=== PATIENT | male | born 1945 | race Caucasian/White ===

== ENCOUNTER 2019-04-28 14:41 | Emergency (ER) | payer OTHER ==
[2019-04-28] MEDS ORDERED: NA CHLORIDE 0.9% 2,000 ML ONE (15:45)
[2019-04-28 15:49] LABS: Absolute Lymphocytes (CBC) 0.7 K/uL (0.7-4.9); Basophils % 0.1 % (0-1.3); Hematocrit 23.6 % (39.6-49.0); Lymphocytes % 18.8 % (15.3-44.8); MPV 8.3 fL (7.6-11.3); RBC Red Blood Cell Count 2.61 M/uL (4.33-5.43)
[2019-04-28 15:56] LABS: Protime INR 1.25
[2019-04-28 16:05] LABS: Potassium 4.6 mmol/L (3.5-5.1)
[2019-04-28 16:17] LABS: Anisocytosis 1+; Blood Morphology Comment NOTED (NOT SEEN); Platelet Estimate DECR; Poikilocytosis 1+; Polychromasia SLIGHT; Teardrop Cell 1+
[2019-04-28 16:28] LABS: Albumin 2.7 g/dL (3.4-5.0); Bilirubin Direct 0.1 mg/dL (0-0.2); Bilirubin Total 0.4 mg/dL (0.2-1.0); Magnesium 2.1 mg/dL (1.8-2.4); Protein, Total 5.9 g/dL (6.4-8.2)
[2019-04-28] MEDS ORDERED: HYDROCODONE/APAP 10/325 TAB ONE (16:34)
--- NOTE | 2019-04-28 17:17 | RAD REPORT ---
EXAM DESCRIPTION: RAD - Chest Single View - 04/28/2019 4:45 pm CLINICAL HISTORY: DYSPNEA, history of prostate cancer COMPARISON: Bone Imaging Whole Body dated 09/06/2018 TECHNIQUE: AP portable chest image was obtained 04/28/2019 4:45 pm . FINDINGS: Lung volumes are low. No peripheral consolidation or focal infiltrate. No pulmonary parenc hymal mass lesions seen. Heart and vasculature are normal. No measurable pleural effusion and no pneu mothorax. Sclerotic or blastic changes are seen throughout much of the skeleton. Prior bone scan show ed extensive bony metastatic disease. No acute aortic findings suspected. IMPRESSION: No acute cardiopulmonary process. Bony metastatic disease is evident. No pathologic fracture changes.
--- NOTE | 2019-04-28 19:52 | EDPHYS ---
Physician Documentation [facility] Name: Alberto Cristina Jr Age: 73 yrs Sex: Male : 1945 Arrival Date: 04/28/2019 Time: 14:45 Bed 27 Private MD: ED Physician Jim Mejia HPI: 04/28 17:22 This 73 yrs old Male presents to ER via EMS with complaints of weakness. jr8 17:22 Patient with history of gastric and prostate cancer. Too weak to receive chemotherapy jr8 at this time. Has been doing stem cell transplants for now. Stated that he has not been hydrating as well lately. Was unable to even get up out of bed today and family was unable to help him up as well secondary to weakness. Ambulance called at that time . Severity of symptoms: At their worst the symptoms were moderate in the emergency department the symptoms are unchanged. It is unknown whether or not the patient has had similar symptoms in the past. The patient has not recently seen a physician. Historical: - Allergies: 14:52 No Known Allergies; wh - PMHx: 14:52 Diabetes - NIDDM; Hypertension; Prostate Cancer; wh - Immunization history:: Adult Immunizations not up to date. - Coronavirus screen:: The patient has NOT traveled to [place], [place], or [place] in the past 14 days. - Social history:: Smoking status: Patient/guardian denies using. - Ebola Screening: : Patient negative for fever greater than or equal to 101.5 degrees Fahrenheit, and additional compatible Ebola Virus Disease symptoms Patient denies exposure to infectious person. ROS: 17:22 Eyes: Negative for injury, pain, redness, and discharge, ENT: Negative for injury, jr8 pain, and discharge, Neck: Negative for injury, pain, and swelling, Cardiovascular: Negative for chest pain, palpitations, and edema, Respiratory: Negative for shortness of breath, cough, wheezing, and pleuritic chest pain, Abdomen/GI: Negative for abdominal pain, nausea, vomiting, diarrhea, and constipation, Back: Negative for injury and pain, MS/Extremity: Negative for injury and deformity, Skin: Negative for injury, rash, and discoloration. 17:22 Neuro: Positive for weakness. Exam: 17:22 Eyes: Pupils equal round and reactive to light, extra-ocular motions intact. Lids and jr8 lashes normal. Conjunctiva and sclera are non-icteric and not injected. Pale in appearance. Cornea within normal limits. Periorbital areas with no swelling, redness, or edema. ENT: Nares patent. No nasal discharge, no septal abnormalities noted. Tympanic membranes are normal and external auditory canals are clear. Oropharynx with no redness, swelling, or masses, exudates, or evidence of obstruction, uvula midline. Mucous membranes dry Neck: Trachea midline, no thyromegaly or masses palpated, and no cervical lymphadenopathy. Supple, full range of motion without nuchal rigidity, or vertebral point tenderness. No Meningismus. Cardiovascular: Regular rate and rhythm with a normal S1 and S2. No gallops, murmurs, or rubs. Normal PMI, no JVD. No pulse deficits. Respiratory: Lungs have equal breath sounds bilaterally, clear to auscultation and percussion. No rales, rhonchi or wheezes noted. No increased work of breathing, no retractions or nasal flaring. Abdomen/GI: Soft, non-tender, with normal bowel sounds. No distension or tympany. No guarding or rebound. No evidence of tenderness throughout. Back: No spinal tenderness. No costovertebral tenderness. Full range of motion. MS/ Extremity: Pulses equal, no cyanosis. Neurovascular intact. Full, normal range of motion. Neuro: Awake and alert, GCS 15, oriented to person, place, time, and situation. Cranial nerves II-XII grossly intact. Motor strength 5/5 in all extremities. Sensory grossly intact. Cerebellar exam normal. Normal gait. 17:22 Skin: Appearance: Color: pale. 17:27 Abdomen/GI: Rectal exam: is unremarkable, Prostate: enlarged, nodular, rectal tone jr8 normal, Stool: brown, guaiac negative, hemorrhoid(s), external, without bleeding, without inflammation, without thrombosis, without pain, mass, is not appreciated, swelling, is not appreciated, tenderness, is not appreciated, the exam is chaperoned by the nurse. Vital Signs: 14:52 BP 125 / 64; Pulse 75; Resp 18; Temp 98.5; Pulse Ox 100% ; Weight 73.48 kg; Height 6 wh ft. 1 in. (185.42 cm); Pain 4/10; 16:00 BP 128 / 51; Pulse 74; Resp 18; Pulse Ox 100% on R/A; wh 17:30 BP 130 / 51; Pulse 65; Resp 18; Pulse Ox 99% on R/A; wh 14:52 Body Mass Index 21.37 (73.48 kg, 185.42 cm) MDM: 14:48 Patient medically screened. jr8 17:22 Data reviewed: vital signs, nurses notes, lab test result(s), EKG, radiologic studies, jr8 plain films. Data interpreted: Pulse oximetry: on room air is 100 %. Interpretation: normal. Counseling: I had a detailed discussion with the patient and/or guardian regarding: the historical points, exam findings, and any diagnostic results supporting the discharge/admit diagnosis, lab results, radiology results, the need for further work-up and treatment in the hospital. 17:44 Response to treatment: the patient's symptoms have markedly improved after treatment, jr8 patient is well hydrated. ED course: Patient feeling much better. No gross or occult blood noted on guiac. No reason to transfuse at this time. Fluids has made patient feel much better. Able to get up and stand on his own. No dizziness or gait abnormality. Discussed fluid continuation at home along with high calorie boost shakes. To f/u with Oncologist. Family and patient good with plan. Knows to come back if something were to change or worsen . 04/28 15:09 Order name: Basic Metabolic Panel [facility] 04/28 15:09 Order name: CBC with Diff 04/28 15:09 Order name: LFT's 04/28 15:09 Order name: Magnesium 04/28 15:09 Order name: NT PRO-BNP 04/28 15:09 Order name: PT-INR 04/28 15:09 Order name: Troponin (emerg Dept Use Only) [facility] 04/28 15:58 Order name: CBC with Automated Diff; Complete Time: 16:56 EDMS 04/28 15:58 Order name: Protime (+INR); Complete Time: 15:59 EDMS 04/28 16:06 Order name: Basic Metabolic Panel; Complete Time: 16:25 EDMS 04/28 16:29 Order name: Manual Differential; Complete Time: 16:56 EDMS 04/28 16:29 Order name: NT PRO-BNP; Complete Time: 16:56 EDMS 04/28 17:22 Order name: Liver (Hepatic) Function; Complete Time: 17: [facility] 04/28 17:24 Order name: Magnesium; Complete Time: 17: [facility] 04/28 15:09 Order name: XRAY Chest (1 view) [facility] 04/28 15:09 Order name: EKG; Complete Time: 16:10 [facility] 04/28 15:09 Order name: Cardiac monitoring; Complete Time: 15:18 [facility] 04/28 15:09 Order name: EKG - Nurse/Tech; Complete Time: 15: [facility] 04/28 15:09 Order name: IV Saline Lock; Complete Time: 15: [facility] 04/28 15:09 Order name: Labs collected and sent; Complete Time: 15: [facility] 04/28 15:09 Order name: O2 Per Protocol; Complete Time: 15: [facility] 04/28 15:09 Order name: O2 Sat Monitoring; Complete Time: 15: [facility] 04/28 15:26 Order name: Urine Dipstick-Ancillary (obtain specimen); Complete Time: 18: [facility] 04/28 18:02 Order name: Urine Dipstick--Ancillary (enter results) bd Administered Medications: 15:45 Drug: NS 0.9% 1000 ml Route: IV; Rate: 1000 ml; Site: right antecubital; 18:09 Follow up: Response: No adverse reaction; IV Status: Completed infusion 15:45 Drug: NS 0.9% 1000 ml Route: IV; Rate: 1000 ml; Site: right antecubital; 18:09 Follow up: Response: No adverse reaction; IV Status: Completed infusion 16:32 Drug: [place] 10 mg-325 mg 1 tabs Route: PO; 18:09 Follow up: Response: No adverse reaction; Pain is decreased; RASS: Alert and Calm (0) Disposition: 04/29 07:40 Co-signature as Attending Physician, Jim Mejia MD I agree with the assessment and morteza plan of care. Disposition: 04/28/19 17:46 Discharged to Home. Impression: Muscle weakness (generalized), Neoplastic (malignant) related fatigue, Dehydration. - Condition is Stable. - Discharge Instructions: Dehydration, Adult, Weakness, Rehydration, Adult. - Medication Reconciliation Form, Thank You Letter, Antibiotic Education, Prescription Opioid Use form. - Follow up: Private Physician; When: 5 - 6 days; Reason: Recheck today's complaints, Continuance of care, Re-evaluation by your physician. - Problem is new. - Symptoms have improved. Signatures: Dispatcher [employer] EDJim Chi MD MD cha Roszak, Josh, PA PA jr8 Kale Manzanojose alejandro espinoza Corrections: (The following items were deleted from the chart) 04/28 18:13 17:46 04/28/2019 17:46 Discharged to Home. Impression: Muscle weakness (generalized); wh Neoplastic (malignant) related fatigue; Dehydration. Condition is Stable. Forms are Medication Reconciliation Form, Thank You Letter, Antibiotic Education, Prescription Opioid Use. Follow up: Private Physician; When: 5 - 6 days; Reason: Recheck today's complaints, Continuance of care, Re-evaluation by your physician. Problem is new. Symptoms have improved. jr8
--- NOTE | 2019-04-28 19:52 | ER ---
Nurse's Notes [facility] Name: Alberto Cristina Jr Age: 73 yrs Sex: Male : 1945 Arrival Date: 04/28/2019 Time: 14:45 Bed 27 Private MD: Diagnosis: Muscle weakness (generalized);Neoplastic (malignant) related fatigue;Dehydration Presentation: 04/28 14:46 Presenting complaint: EMS states: Pt with HX of Prostate Cancer, family states Pt with wh AMS and dehydration because no appetite. Transition of care: patient was not received from another setting of care. Onset of symptoms was April 28, 2019. Risk Assessment: Do you want to hurt yourself or someone else? Patient reports no desire to harm self or others. Initial Sepsis Screen: Does the patient meet any 2 criteria? No. Patient's initial sepsis screen is negative. Does the patient have a suspected source of infection? No. Patient's initial sepsis screen is negative. Care prior to arrival: Glucose check: 118. 14:46 Method Of Arrival: EMS: [facility] 14:46 Acuity: MIRTHA 3 Historical: - Allergies: 14:52 No Known Allergies; wh - PMHx: 14:52 Diabetes - NIDDM; Hypertension; Prostate Cancer; wh - Immunization history:: Adult Immunizations not up to date. - Coronavirus screen:: The patient has NOT traveled to [place], [place], or [place] in the past 14 days. - Social history:: Smoking status: Patient/guardian denies using. - Ebola Screening: : Patient negative for fever greater than or equal to 101.5 degrees Fahrenheit, and additional compatible Ebola Virus Disease symptoms Patient denies exposure to infectious person. Screenin:56 Abuse screen: Denies threats or abuse. Denies injuries from another. Nutritional screening: No deficits noted. Tuberculosis screening: No symptoms or risk factors identified. Fall Risk None identified. Assessment: 14:58 General: Appears in no apparent distress. Behavior is calm, cooperative, appropriate wh for age. Pain: Complains of pain in tail bone Pain does not radiate. Pain currently is 4 out of 10 on a pain scale. Quality of pain is described as aching, Pain began 2-3 days ago. Neuro: Level of Consciousness is awake, alert, obeys commands, Oriented to person, place, time, situation, Appropriate for age. Cardiovascular: Heart tones S1 S2. Respiratory: Airway is patent Respiratory effort is even, unlabored, Respiratory pattern is regular, symmetrical, Breath sounds are clear bilaterally. GI: Abdomen is flat, non-distended, Abd is soft and non tender X 4 quads. : No signs and/or symptoms were reported regarding the genitourinary system. EENT: No signs and/or symptoms were reported regarding the EENT system. Derm: Skin is intact. Musculoskeletal: Circulation, motion, and sensation intact. 16:00 Reassessment: Patient appears in no apparent distress at this time. No changes from previously documented assessment. Patient and/or family updated on plan of care and expected duration. Pain level reassessed. Patient is alert, oriented x 3, equal unlabored respirations, skin warm/dry/pink. 17:00 Reassessment: Patient appears in no apparent distress at this time. No changes from previously documented assessment. Patient and/or family updated on plan of care and expected duration. Pain level reassessed. Patient is alert, oriented x 3, equal unlabored respirations, skin warm/dry/pink. Provider at bedside for Guiac test. 18:10 Reassessment: Patient appears in no apparent distress at this time. No changes from previously documented assessment. Patient and/or family updated on plan of care and expected duration. Pain level reassessed. Patient is alert, oriented x 3, equal unlabored respirations, skin warm/dry/pink. Patient states feeling better. Patient states symptoms have improved. Vital Signs: 14:52 BP 125 / 64; Pulse 75; Resp 18; Temp 98.5; Pulse Ox 100% ; Weight 73.48 kg; Height 6 wh ft. 1 in. (185.42 cm); Pain 4/10; 16:00 BP 128 / 51; Pulse 74; Resp 18; Pulse Ox 100% on R/A; 17:30 BP 130 / 51; Pulse 65; Resp 18; Pulse Ox 99% on R/A; 14:52 Body Mass Index 21.37 (73.48 kg, 185.42 cm) ED Course: 14:45 Patient arrived in ED. 14:46 Cherelle Manzano is Primary Nurse. 14:48 Wojciech Rodrigues PA is PHCP. 8 14:48 Jim Mejia MD is Attending Physician. jr8 14:51 Triage completed. 14:56 Patient has correct armband on for positive identification. Placed in gown. Bed in low wh position. Call light in reach. Side rails up X 1. Pulse ox on. NIBP on. 14:59 Arm band placed on left wrist. 15:15 Inserted saline lock: 20 gauge in right antecubital area, using aseptic technique. Blood collected. 15:48 EKG done, by pharmacy technician per diem. reviewed by Wojciech HANKS. at1 18:12 No provider procedures requiring assistance completed. IV discontinued, intact, wh bleeding controlled, No redness/swelling at site. Administered Medications: 15:45 Drug: NS 0.9% 1000 ml Route: IV; Rate: 1000 ml; Site: right antecubital; 18:09 Follow up: Response: No adverse reaction; IV Status: Completed infusion 15:45 Drug: NS 0.9% 1000 ml Route: IV; Rate: 1000 ml; Site: right antecubital; 18:09 Follow up: Response: No adverse reaction; IV Status: Completed infusion 16:32 Drug: [place] 10 mg-325 mg 1 tabs Route: PO; 18:09 Follow up: Response: No adverse reaction; Pain is decreased; RASS: Alert and Calm (0) Outcome: 17:46 Discharge ordered by . jr8 18:12 Discharged to home via wheelchair, with family. 18:12 Condition: stable 18:12 Discharge instructions given to patient, family, Instructed on discharge instructions, follow up and referral plans. POC Demonstrated understanding of instructions, follow-up care, POC 18:13 Patient left the ED. Signatures: Wojciech Rodrigues PA PA jr8 Rimma Bernal, gaming dealer EKG Tat1 Cherelle Manzano Corrections: (The following items were deleted from the chart) 14:58 14:52 BP 125 / 64; Pulse 75bpm; Resp 18bpm; Pulse Ox 100%; Temp 98.5F; 73.48 kg; Height wh 6 ft. 1 in.; BMI: 21.3; wh
[2019-04-28 20:03] LABS: Urine Blood NEGATIVE (NEG); Urine Glucose NEGATIVE (NEG); Urine Protein NEGATIVE (NEG); Urine Specific Gravity 1.025 (1.005-1.030)
--- NOTE | 2019-04-29 08:51 | EKG ---
Test Date: 2019-04-28 Test Time: 15:26:37 Web Merchandiser: ROSE MEASUREMENT RESULTS: Intervals: Rate: 83 DE: 162 QRSD: 90 QT: 348 QTc: 408 [place]: P: 65 DE: 162 QRS: 64 T: 86 INTERPRETIVE STATEMENTS: Sinus rhythm with premature supraventricular complexes Otherwise normal ECG No previous ECG available for comparison Electronically Signed On 04-29-19 08:49:58 DATA PROCESSING SYSTEMS PROJECT PLANNER by Sreedhar Jain
[2019-04-30 14:17] VITALS: TEMP 98.5
[2019-04-30 14:19] VITALS: BP 130/51; O2SAT 99
== END 2019-04-28 18:13 | disposition home or self-care (01) ==
LOC: ER 14:41
DX: R53.0 Neoplastic (malignant) related fatigue (principal); E86.0 Dehydration; C63.7 Malignant neoplasm of other specified male genital organs; I10 Essential (primary) hypertension
CPT/HCPCS: 96361; 93005; 85025; 80048; 36415; 83735; 85610; 80076; 81003; 83880; 71045; 96360; 99284; J7030

== ENCOUNTER 2019-05-01 14:35 | Observation (INO) | payer OTHER ==
[2019-05-01] MEDS ORDERED: NA CHLORIDE 0.9% 1,000 ML ONE (15:49)
[2019-05-01 16:25] LABS: Absolute Lymphocytes (CBC) 0.7 K/uL (0.7-4.9); Basophils % 0.2 % (0-1.3); Hematocrit 22.5 % (39.6-49.0); Lymphocytes % 16.7 % (15.3-44.8); Protime INR 1.41; RBC Red Blood Cell Count 2.51 M/uL (4.33-5.43)
[2019-05-01 16:53] LABS: AST/SGOT 6 U/L (15-37); Albumin 2.4 g/dL (3.4-5.0); Alkaline Phosphatase 1100 U/L (45-117); BUN Blood Urea Nitrogen 18 mg/dL (7-18); Bicarbonate 22 mmol/L (21-32); Bilirubin Direct 0.2 mg/dL (0-0.2); Bilirubin Total 0.5 mg/dL (0.2-1.0); Glucose Level 147 mg/dL (74-106); Magnesium 2.1 mg/dL (1.8-2.4); Potassium 4.4 mmol/L (3.5-5.1); Protein, Total 5.8 g/dL (6.4-8.2); Sodium Level 142 mmol/L (136-145); Troponin (Emerg Dept Use Only) < 0.02 ng/mL (0.0-0.045)
[2019-05-01 17:00] LABS: ALT/SGPT < 6 U/L (12-78)
[2019-05-01 17:41] LABS: Urine Bacteria <20 /HPF (NONE SEEN); Urine Culture Reflex Order REFLEXED; Urine Mucus 1+ /HPF (NONE SEEN)
[2019-05-01 17:42] LABS: Urine Blood NEGATIVE (NEG); Urine Glucose NEGATIVE (NEG); Urine Protein NEGATIVE (NEG); Urine Specific Gravity >1.030 (1.005-1.030)
--- NOTE | 2019-05-01 17:46 | EKG ---
Test Date: 2019-05-01 Test Time: 15:51:51 Tube Worker: KLAUDIA MEASUREMENT RESULTS: Intervals: Rate: 80 IN: QRSD: 80 QT: 358 QTc: 412 [place]: P: IN: QRS: 67 T: 76 INTERPRETIVE STATEMENTS: Sinus rhythm with premature atrial complexes Abnormal ECG Compared to ECG 04/28/2019 15:26:37 no significant change from previous ECG Electronically Signed On 05-01-19 17:45:24 TEMPORARY DATA ENTRY CLERK by Sreedhar Jain
--- NOTE | 2019-05-01 18:03 | ER ---
Nurse's Notes [facility] Name: Alberto Cristina Jr Age: 73 yrs Sex: Male : 1945 Arrival Date: 05/01/2019 Time: 14:37 Bed 17 Private MD: Diagnosis: Anemia in chronic diseases classified elsewhere;Unspecified atrial fibrillation;Weakness Presentation: 05/01 14:41 Presenting complaint: states: He was here Sunday, they gave him 2L IVF and was ca1 sent home. But at home I can't give him anything. He has NO nausea and vomiting, I can't just make him eat or drink anything. Yesterday, I can't give him his medications too. He has Gastric Cancer that has metastasized to the bones and is not undergoing chemo. He is just very weak and not himself. Transition of care: patient was not received from another setting of care. Onset of symptoms was May 01, 2019. Risk Assessment: Do you want to hurt yourself or someone else? Patient reports no desire to harm self or others. Initial Sepsis Screen: Does the patient meet any 2 criteria? No. Patient's initial sepsis screen is negative. Does the patient have a suspected source of infection? No. Patient's initial sepsis screen is negative. Care prior to arrival: None. 14:41 Method Of Arrival: Wheelchair ca1 14:41 Acuity: MIRTHA 3 ca1 Triage Assessment: 15:02 General: Appears in no apparent distress. comfortable, slender, Behavior is bp cooperative, appropriate for age, anxious. Pain: Denies pain. EENT: No deficits noted. Neuro: Level of Consciousness is awake, alert, obeys commands, Oriented to person, place, time, situation, Appropriate for age Weakness Gait is unsteady. Cardiovascular: No deficits noted. Respiratory: No deficits noted. GI: No signs and/or symptoms were reported involving the gastrointestinal system. : No signs and/or symptoms were reported regarding the genitourinary system. Derm: No deficits noted. Musculoskeletal: No deficits noted. Historical: - Allergies: 14:54 No Known Allergies; ca1 - Home Meds: 14:54 hydrocodone-acetaminophen 10-325 mg Oral tab 1 tab every 4 hours [Active]; diazepam 5 ca1 mg Oral tab [Active]; Zofran (as hydrochloride) 8 mg Oral tab 1 tab every 8 hours [Active]; prochlorperazine maleate 10 mg Oral tab 1 tab 4 times per day [Active]; temazepam 15 mg Oral cap 1 cap once daily [Active]; alprazolam 1 mg Oral tab 1 tab 3 times per day [Active]; hydrocortisone 10 mg Oral tab 1.5 tab 2 times per day [Active]; potassium chloride 10 mEq Oral TbTQ 2 tabs 2 times per day [Active]; amlodipine 5 mg tab 1 tab once daily [Active]; metformin 1,000 mg Oral tr24 2 tabs once daily [Active]; simvastatin 20 mg Oral tab 1 tab once daily [Active]; glipizide 10 mg Oral tab 1 tab 2 times per day [Active]; losartan-hydrochlorothiazide 100-25 mg oral tab 1 tab once daily [Active]; tamsulosin 0.4 mg oral cp24 1 cap once daily [Active]; - PMHx: 14:54 Diabetes - NIDDM; Hypertension; Prostate Cancer; Gastric Cancer; ca1 - PSHx: 14:54 None; ca1 - Immunization history:: Adult Immunizations up to date, Pneumococcal vaccine is up to date, Flu vaccine is not up to date. - Coronavirus screen:: The patient has NOT traveled to [place] in the past 14 days. The patient has NOT had contact with known/suspected case of Coronavirus?. - Social history:: Smoking status: Patient denies any tobacco usage or history of. - Ebola Screening: : Patient negative for fever greater than or equal to 101.5 degrees Fahrenheit, and additional compatible Ebola Virus Disease symptoms Patient denies exposure to infectious person Patient denies travel to an Ebola-affected area in the 21 days before illness onset No symptoms or risks identified at this time. Screenin:03 Abuse screen: Denies threats or abuse. Denies injuries from another. Nutritional bp screening: No deficits noted. Tuberculosis screening: No symptoms or risk factors identified. Fall Risk None identified. Assessment: 15:03 General: SEE TRIAGE NOTE. bp 16:35 Reassessment: received critical lab results from lab with hemoglobin of 7.2, reported ah to Jim Page. 17:56 Reassessment: ALL CURRENT ORDERS COMPLETED. PT MEDICATED FOR PAIN. VS STABLE ON MONITOR.bp 19:15 Reassessment: Patient appears in no apparent distress at this time. Patient and/or wh family updated on plan of care and expected duration. Pain level reassessed. Patient is alert, oriented x 3, equal unlabored respirations, skin warm/dry/pink. 20:30 Reassessment: Patient appears in no apparent distress at this time. No changes from previously documented assessment. Patient and/or family updated on plan of care and expected duration. Pain level reassessed. Patient is alert, oriented x 3, equal unlabored respirations, skin warm/dry/pink. Vital Signs: 14:54 BP 136 / 60; Pulse 88; Resp 17 S; Temp 97.7(O); Pulse Ox 100% on R/A; Weight 73.03 kg ca1 (R); Height 5 ft. 11 in. (180.34 cm) (R); 15:00 BP 129 / 50 Supine; Pulse 83; Resp 18; Pulse Ox 100% ; bp 15:05 BP 132 / 54 Sitting; Pulse 75; bp 15:10 BP 147 / 54 Standing; Pulse 77; bp 16:00 BP 147 / 54; Pulse 77; Resp 16; Pulse Ox 100% ; bp 17:00 BP 136 / 57; Pulse 66; Resp 15; Pulse Ox 100% ; bp 17:53 BP 134 / 70; Pulse 64; Resp 16; Pulse Ox 100% ; bp 19:00 BP 150 / 75; Pulse 77; Resp 18; Pulse Ox 100% on R/A; wh 20:00 BP 145 / 86; Pulse 68; Resp 18; Pulse Ox 100% ; wh 14:54 Body Mass Index 22.45 (73.03 kg, 180.34 cm) ca1 ED Course: 14:37 Patient arrived in ED. as 14:47 Triage completed. ca1 14:54 Arm band placed on right wrist. ca1 14:56 Mik Logan, RN is Primary Nurse. bp 15:03 Patient has correct armband on for positive identification. Bed in low position. Call bp light in reach. Side rails up X2. Adult w/ patient. 15:13 [facility]. cp 15:13 Hay Obrien MD is Attending Physician. cp 15:57 EKG done, by qc lab technician. reviewed by Jim HANKS. at1 16:10 Inserted saline lock: 20 gauge in right forearm, using aseptic technique. Blood bp collected. 17:57 Florentino Lubin DO is Hospitalizing Provider. cp 20:35 No provider procedures requiring assistance completed. Patient transferred, IV remains in place. Administered Medications: 16:10 Drug: NS 0.9% 1000 ml Route: IV; Rate: 1000 ml/hr; Site: right forearm; bp 20:38 Follow up: Response: No adverse reaction; IV Status: Completed infusion 17:30 Drug: [place] 10 mg-325 mg 1 tabs Route: PO; bp 18:27 Follow up: Response: Pain is decreased bp Outcome: 17:58 Decision to Hospitalize by Provider. cp 20:[address] [facility] accompanied by nurse, family with patient, via wheelchair, room 425, with chart, Report called to Suly Dougherty RN 20:35 Condition: stable 20:35 Instructed on the need for admit. 20:37 Patient left the ED. Signatures: Nancy Florence Amanda, artificial snow making machine operator EKG Tat1 Jim Thomas PA PA Cherelle Manzano Mik Logan RN RN Marya Davis RN RN [facility] Teena Jain, RN RN
--- NOTE | 2019-05-01 18:04 | EDPHYS ---
Physician Documentation [facility] Name: Alberto Cristina Jr Age: 73 yrs Sex: Male : 1945 Arrival Date: 05/01/2019 Time: 14:37 Bed 17 Private MD: ED Physician Hay Obrien HPI: 05/01 15:40 This 73 yrs old Male presents to ER via Wheelchair with complaints of cp Dehydration. 15:40 The patient's problem is reported as weakness, that is generalized. cp 15:40 Onset: The symptoms/episode began/occurred gradually. Duration: The episode is cp continuous. Associated signs and symptoms: Pertinent positives: nausea, decreased appetite. Severity of symptoms: in the emergency department the symptoms are unchanged despite home interventions. Patient's baseline: Neuro: alert and fully oriented, Motor: no deficits, Ambulation: walks without assistance, Speech: normal. Historical: - Allergies: 14:54 No Known Allergies; ca1 - Home Meds: 14:54 hydrocodone-acetaminophen 10-325 mg Oral tab 1 tab every 4 hours [Active]; diazepam 5 ca1 mg Oral tab [Active]; Zofran (as hydrochloride) 8 mg Oral tab 1 tab every 8 hours [Active]; prochlorperazine maleate 10 mg Oral tab 1 tab 4 times per day [Active]; temazepam 15 mg Oral cap 1 cap once daily [Active]; alprazolam 1 mg Oral tab 1 tab 3 times per day [Active]; hydrocortisone 10 mg Oral tab 1.5 tab 2 times per day [Active]; potassium chloride 10 mEq Oral TbTQ 2 tabs 2 times per day [Active]; amlodipine 5 mg tab 1 tab once daily [Active]; metformin 1,000 mg Oral tr24 2 tabs once daily [Active]; simvastatin 20 mg Oral tab 1 tab once daily [Active]; glipizide 10 mg Oral tab 1 tab 2 times per day [Active]; losartan-hydrochlorothiazide 100-25 mg oral tab 1 tab once daily [Active]; tamsulosin 0.4 mg oral cp24 1 cap once daily [Active]; - PMHx: 14:54 Diabetes - NIDDM; Hypertension; Prostate Cancer; Gastric Cancer; ca1 - PSHx: 14:54 None; ca1 - Immunization history:: Adult Immunizations up to date, Pneumococcal vaccine is up to date, Flu vaccine is not up to date. - Coronavirus screen:: The patient has NOT traveled to [place] in the past 14 days. The patient has NOT had contact with known/suspected case of Coronavirus?. - Social history:: Smoking status: Patient denies any tobacco usage or history of. - Ebola Screening: : Patient negative for fever greater than or equal to 101.5 degrees Fahrenheit, and additional compatible Ebola Virus Disease symptoms Patient denies exposure to infectious person Patient denies travel to an Ebola-affected area in the 21 days before illness onset No symptoms or risks identified at this time. ROS: 15:50 Constitutional: Positive for poor PO intake, Negative for body aches, chills, fever. cp 15:50 Eyes: Negative for injury, pain, redness, and discharge. cp 15:50 ENT: Negative for drainage from ear(s), ear pain, sore throat, difficulty swallowing, cp difficulty handling secretions. 15:50 Cardiovascular: Negative for chest pain, edema, palpitations. 15:50 Respiratory: Negative for cough, shortness of breath, wheezing. 15:50 Abdomen/GI: Positive for nausea, anorexia, Negative for abdominal pain, vomiting, diarrhea, constipation, black/tarry stool, rectal bleeding. 15:50 : Negative for urinary symptoms. 15:50 Skin: Negative for rash. 15:50 Neuro: Positive for weakness, Negative for altered mental status, headache. 15:50 All other systems are negative. Exam: 15:55 Constitutional: The patient appears in no acute distress, alert, awake, cp non-diaphoretic, non-toxic, well developed, frail. 15:55 Head/Face: Normocephalic, atraumatic. cp 15:55 Eyes: Periorbital structures: appear normal, Pupils: equal, round, and reactive to cp light and accomodation, Extraocular movements: intact throughout, Conjunctiva: normal, no exudate, no injection, Sclera: no appreciated abnormality, Lids and lashes: appear normal, bilaterally. 15:55 ENT: External ear(s): are unremarkable, Ear canal(s): are normal, clear, TM's: bulging, is not appreciated, bilaterally, dullness, bilaterally, erythema, is not appreciated, bilaterally, Nose: is normal, Mouth: Lips: dry, Oral mucosa: dry, Posterior pharynx: Airway: no evidence of obstruction, patent, erythema, is not appreciated, exudate, is not appreciated. 15:55 Neck: ROM/movement: is normal, is supple, without pain, no range of motions cp limitations, no meningismus, Lymph nodes: no appreciated lymphadenopathy. 15:55 Chest/axilla: Inspection: normal, Palpation: is normal, no crepitus, no tenderness. 15:55 Cardiovascular: Rate: normal, Rhythm: regular, Edema: is not appreciated, JVD: is not appreciated. 15:55 Respiratory: the patient does not display signs of respiratory distress, Respirations: normal, no use of accessory muscles, no retractions, labored breathing, is not present, Breath sounds: are clear throughout, no decreased breath sounds. 15:55 Abdomen/GI: Inspection: abdomen appears normal, Bowel sounds: active, all quadrants, Palpation: abdomen is soft and non-tender, in all quadrants, voluntary guarding, is not appreciated, involuntary guarding, is not appreciated. 15:55 Back: pain, is absent, ROM is normal. 15:55 Skin: cellulitis, is not appreciated, no rash present. noted grade 1 pressure ulcer decubitus area. 15:55 Neuro: Orientation: to person, place \T\ time. Mentation: lucid, able to follow commands, Cerebellar function: is grossly normal, Motor: moves all fours, general weakness without focal deficits, Sensation: is normal. 16:00 ECG was reviewed by the Attending Physician. cp 16:00 CT study not indicated or reported. Reason for not performing CT: neuro exam normal cp 17:52 : Rectal exam: Guaiac testing: results were negative for occult blood. cp Vital Signs: 14:54 BP 136 / 60; Pulse 88; Resp 17 S; Temp 97.7(O); Pulse Ox 100% on R/A; Weight 73.03 kg ca1 (R); Height 5 ft. 11 in. (180.34 cm) (R); 15:00 BP 129 / 50 Supine; Pulse 83; Resp 18; Pulse Ox 100% ; bp 15:05 BP 132 / 54 Sitting; Pulse 75; bp 15:10 BP 147 / 54 Standing; Pulse 77; bp 16:00 BP 147 / 54; Pulse 77; Resp 16; Pulse Ox 100% ; bp 17:00 BP 136 / 57; Pulse 66; Resp 15; Pulse Ox 100% ; bp 17:53 BP 134 / 70; Pulse 64; Resp 16; Pulse Ox 100% ; bp 19:00 BP 150 / 75; Pulse 77; Resp 18; Pulse Ox 100% on R/A; wh 20:00 BP 145 / 86; Pulse 68; Resp 18; Pulse Ox 100% ; wh 14:54 Body Mass Index 22.45 (73.03 kg, 180.34 cm) ca1 MDM: 15:14 Patient medically screened. 17:30 Data reviewed: vital signs, nurses notes, lab test result(s), EKG, I have discussed the patient's presentation/case with the attending Emergency Department Physician; and as a result, I will admit patient. 17:30 Test interpretation: by ED physician or midlevel provider: ECG. 05/01 15:36 Order name: Basic Metabolic Panel 05/01 15:36 Order name: CBC with Diff 05/01 15:36 Order name: LFT's 05/01 15:36 Order name: Magnesium 05/01 15:36 Order name: PT-INR 05/01 15:36 Order name: Troponin (emerg Dept Use Only) 05/01 15:36 Order name: Urine Microscopic Only 05/01 16:34 Order name: Protime (+INR); Complete Time: 16:55 EDMS 05/01 16:55 Interpretation: Abnormal. 05/01 16:37 Order name: CBC with Automated Diff; Complete Time: 02:17 EDMS 05/01 16:55 Interpretation: Normal except: WBC 4.0; RBC 2.51; HGB 7.2; HCT 22.5; MCHC 31.9; PLT cp 134; RDW 18.9; MN% 12.7. 05/01 17:03 Order name: Basic Metabolic Panel; Complete Time: 17:20 EDMS 05/01 17:20 Interpretation: Normal except: CL 109; GLUC 147. 05/01 17:03 Order name: Liver (Hepatic) Function; Complete Time: 17:20 EDMS 05/01 17:20 Interpretation: Normal except: AST 6; ALT < 6; ALK 1100; TP 5.8; ALB 2.4; A/G 0.7. 05/01 17:03 Order name: Troponin (Emerg Dept Use Only); Complete Time: 17:20 EDMS 05/01 17:04 Order name: Magnesium; Complete Time: 17:20 EDMS 05/01 17:33 Order name: Urine Dipstick--Ancillary (enter results) em1 05/01 15:36 Order name: EKG; Complete Time: 15:50 cp 05/01 15:36 Order name: Cardiac monitoring; Complete Time: 15:58 cp 05/01 15:36 Order name: EKG - Nurse/Tech; Complete Time: 15:58 cp 05/01 15:36 Order name: IV Saline Lock; Complete Time: 16:17 cp 05/01 15:36 Order name: Labs collected and sent; Complete Time: 16:17 cp 05/01 15:36 Order name: O2 Per Protocol; Complete Time: 15:37 cp 05/01 15:36 Order name: O2 Sat Monitoring; Complete Time: 15:37 cp 05/01 15:36 Order name: Orthostatics; Complete Time: 16:17 cp 05/01 17:34 Order name: Type And Screen cp 05/01 17:47 Order name: Urine Microscopic Only; Complete Time: 02:17 EDMS 05/01 17:47 Order name: Urine Dipstick-Ancillary; Complete Time: 02:17 EDMS 05/01 18:18 Order name: Manual Differential; Complete Time: 02:17 EDMS 05/01 20:31 Order name: Type and Screen EDMS 05/01 20:34 Order name: ABO/RH no charge; Complete Time: 02:17 EDMS 05/01 15:36 Order name: Urine Dipstick-Ancillary (obtain specimen); Complete Time: 18:28 cp EC:00 Rate is 80 beats/min. Rhythm is irregular. QRS interval is normal. QT interval is cp normal. Interpreted by me. Reviewed by me. Administered Medications: 16:10 Drug: NS 0.9% 1000 ml Route: IV; Rate: 1000 ml/hr; Site: right forearm; bp 20:38 Follow up: Response: No adverse reaction; IV Status: Completed infusion wh 17:30 Drug: [place] 10 mg-325 mg 1 tabs Route: PO; bp 18:27 Follow up: Response: Pain is decreased bp Disposition: 05/02 07:06 Co-signature as Attending Physician, Hay Obrien MD I agree with the assessment and kdr plan of care. Disposition: 05/01/19 17:58 Hospitalization ordered by Florentino Lubin for Observation. Preliminary diagnosis are Anemia in chronic diseases classified elsewhere, Unspecified atrial fibrillation, Weakness. - Bed requested for Telemetry/MedSurg (Inpatient). - Status is Observation. - Condition is Stable. - Problem is new. - Symptoms are unchanged. Signatures: Dispatcher [employer] EDMS Madai Billingsley RN RN Hay Obrien MD MD kdr Page, Corey, PA PA cp Jose Juan, Cherelle Mik Loagn, RN RN bp Marya Goldstein RN RN ca1 Corrections: (The following items were deleted from the chart) 05/01 18:41 17:58 Hospitalization Ordered by Florentino Lubni DO for Inpatient Admission. Preliminary cp diagnosis is Anemia in chronic diseases classified elsewhere; Unspecified atrial fibrillation; Weakness. Bed requested for Telemetry/MedSurg (Inpatient). Status is Inpatient Admission. Condition is Stable. Problem is new. Symptoms are unchanged. 19:44 18:41 05/01/2019 17:58 Hospitalization Ordered by Florentino Lubin DO for Observation. Preliminary diagnosis is Anemia in chronic diseases classified elsewhere; Unspecified atrial fibrillation; Weakness. Bed requested for Telemetry/MedSurg (Inpatient). Status is Observation. Condition is Stable. Problem is new. Symptoms are unchanged. 20:37 19:44 05/01/2019 17:58 Hospitalization Ordered by Florentino Lubin DO for Observation. Preliminary diagnosis is Anemia in chronic diseases classified elsewhere; Unspecified atrial fibrillation; Weakness. Bed requested for Telemetry/MedSurg (Inpatient). Status is Observation. Condition is Stable. Problem is new. Symptoms are unchanged.
[2019-05-01 18:14] LABS: Anisocytosis 2+; Blood Morphology Comment NOTED (NOT SEEN); Platelet Estimate ADEQ; Poikilocytosis 1+; Polychromasia 1+; Teardrop Cell 2+
--- NOTE | 2019-05-01 18:51 | P.HP ---
Certification for Inpatient Patient admitted to: Observation With expected LOS: <2 Midnights Patient will require the following post-hospital care: Hospice Practitioner: I am a practitioner with admitting privileges, knowledge of patient current condition, hospital course, and medical plan of care. Services: Services provided to patient in accordance with Admission requirements found in Title 42 Section 412.3 of the Code of Federal Regulations Patient History Date of Service: 05/01/19 Primary Care Provider: Dr. Muñoz; Urology-Dr. Restrepo; Oncology-Dr. South/[facility] Reason for admission: weakness, nausea, vomiting History of Present Illness: 73-year-old male presented to the emergency room with weakness, nausea and vomiting. Patient with underlying history of stage IV gastric cancer and prostate cancer. Patient also has history of diabetes, hypertension. Patient presented with increased weakness, nausea and vomiting. Patient reported worsening symptoms. He has not been able to keep anything down. Patient feels dehydrated. He denies any fever, chills. Denies any chest pain or shortness of breath. Patient was diagnosis with prostate cancer in August of 2018. He has seen urology, Oncology and Radiation Oncology. The patient was further evaluated and found to have stage IV gastric cancer in February. He has been to [facility] and [place] oncology. His cancer is extensive. He was offered chemotherapy but due to risk and benefit, he opted not to pursue chemo. In the ER patient was evaluated. Patient appeared dehydrated. Vital signs stable. Hemoglobin 7.2. Prior hemoglobin 7.6. White count 4.0. Sodium 142, potassium 4.4, creatinine within normal range. GFR greater than 90. Glucose 147. Guaiac stool negative. Patient was admitted for further evaluation and observation. When I saw the patient ER, he had received medication for nausea, and fluid hydration. Patient denies any rectal bleeding or melena. Patient appeared dehydrated. Family at bedside. Patient does not appear septic. Patient is considering hospice. Somebody had recommended [facility]. Home medications list reviewed: Yes - Past Medical/Surgical History Diabetic: Yes -: Diabetes mellitus type 2 -: Hypertension -: Prostate cancer -: Stage IV gastric cancer Past Surgical History: Patient denies surgical history Psychosocial/ Personal History: Patient is - Family History Father -: Cancer (Lung cancer, bone cancer. Uncle with prostate cancer) - Social History Smoking Status: Never smoker Alcohol use: No CD- Drugs: No Caffeine use: Yes Place of Residence: Home Review of Systems General: Weakness, As per HPI Eyes: Unremarkable ENT: Unremarkable Respiratory: Unremarkable Cardiovascular: Unremarkable Gastrointestinal: Nausea, Vomiting, As per HPI Genitourinary: Unremarkable Musculoskeletal: Back Pain, As per HPI Integumentary: Unremarkable Neurological: Unremarkable Lymphatics: Unremarkable Physical Examination - Physical Exam General: Alert, In no apparent distress, Oriented x3, Cooperative HEENT: Atraumatic, Normocephalic, Other (Dry mucous membranes) Neck: Supple Respiratory: Clear to auscultation bilaterally, Normal air movement Cardiovascular: Normal pulses, Regular rate/rhythm Gastrointestinal: Normal bowel sounds, Soft and benign, Non-distended, No tenderness, No masses, No rebound, No guarding Musculoskeletal: No erythema, No tenderness, No warmth, Other (Muscle wasting noted to the extremities.) Neurological: Normal speech, Normal strength at 5/5 x4 extr, Normal tone, Normal affect - Studies Laboratory Data (last 24 hrs) 05/01/19 16:10: PT 16.4 H, INR 1.41 05/01/19 16:10: WBC 4.0 L, Hgb 7.2 L*, Hct 22.5 L, Plt Count 134 L 05/01/19 16:10: Sodium 142, Potassium 4.4, BUN 18, Creatinine 0.80, Glucose 147 H, Magnesium 2.1, Total Bilirubin 0.5, AST 6 L, ALT < 6 L, Alkaline Phosphatase 1100 H Assessment and Plan - Plan Impression: Weakness secondary to dehydration with noted nausea and vomiting. 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 Will provide medication for nausea. Will provide IV fluids. Patient with anemia. Patient seen last week in the emergency room. Due to his underlying conditions will transfuse 2 units of blood. I had a long discussion with patient and family concerning advanced directives. Patient wishes to be DNR. 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 Patient had been thinking about possible hospice. Family is well. Patient does not plan to pursue chemotherapy due to risks. Patient willing to have hospice in place. Will have social work consult to help with this. Anticipate discharge in the next 24 hr with clinical improvement and hospice in place. Anemia of chronic disease: Will transfuse 2 units of blood. Maintain hemoglobin above 7.0. 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 Patient does not plan for any further treatment or chemotherapy. Patient desires hospice at this time. Will help arrange for hospice at discharge. Diabetes mellitus type 2: Will monitor Accu-Cheks. Will provide sliding scale. Hypertension: Will start metoprolol. There was some concern for possible atrial fibrillation. It appears to be sinus rhythm with PACs. Will monitor electrolytes. Replacement protocol in place. Will monitor for atrial fibrillation. Patient will not be a candidate for anti coagulation therapy due to risk of bleeding and anemia. This was discussed in detail with patient. Will monitor closely. 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 Discharge Plan: Home Plan to discharge in: 24 Hours - Advance Directives Does patient have a Living Will: No Does patient have a Durable POA for Healthcare: No - Code Status/Comfort Care Code Status Assessed: Yes (Patient is do not resuscitate.) Time Spent Managing Pts Care (In Minutes): 55
[2019-05-01 20:58] VITALS: BMI 22.1
[2019-05-01] MEDS: INSULIN -REGULAR HUMAN 50 UNIT/0.5 ML ML SQ SCH (21:00)
[2019-05-01] MEDS ORDERED: TRAMADOL HCL 50 MG TAB PO PRN (21:00)
[2019-05-01] MEDS ORDERED: ACETAMINOPHEN 500 MG TAB PO PRN (21:00)
[2019-05-01] MEDS ORDERED: HYDROCODONE/APAP 7.5/325 MG TAB PO PRN (21:00)
[2019-05-01] MEDS ORDERED: NA CHLORIDE 0.9% 1,000 ML IV SCH (21:00)
[2019-05-01] MEDS ORDERED: ONDANSETRON 4 MG/2 ML VIAL IV PRN (21:00)
[2019-05-01 22:21] LABS: Ferritin 467.2 ng/mL (26-388)
[2019-05-01] MEDS ORDERED: NA CHLORIDE 0.9% 250 ML ONE (22:40)
[2019-05-01] MEDS ORDERED: HYDROCODONE/APAP 10/325 TAB PO PRN (22:50)
[2019-05-02] MEDS: HYDROCODONE/APAP 10/325 TAB PO PRN ×2 (02:33→09:34)
[2019-05-02] MEDS ORDERED: FUROSEMIDE 20 MG/ 2ML VIAL IV ONE ×2 (03:03→07:30)
[2019-05-02] MEDS ORDERED: NA CHLORIDE 0.9% 250 ML ONE (03:36)
[2019-05-02 04:30] VITALS: O2SAT 97
[2019-05-02] MEDS: METOPROLOL TAR 25 MG TAB PO SCH ×2 (05:21→06:00)
[2019-05-02] MEDS: PANTOPRAZOLE 40MG TABLET PO SCH ×2 (05:21→06:12)
[2019-05-02] MEDS: INSULIN -REGULAR HUMAN 50 UNIT/0.5 ML ML SQ SCH (07:30)
--- NOTE | 2019-05-02 08:42 | P.DS ---
Admission Date: 05/01/19 Discharge Date: 05/02/19 Primary Care Provider: Dr. Muñoz; Urology-Dr. Restrepo; Oncology-Dr. 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 Patient with underlying history of stage IV gastric cancer and prostate cancer. Patient also has history of diabetes, hypertension. Patient presented with increased weakness, nausea and vomiting. Patient reported worsening symptoms. He has not been able to keep anything down. Patient feels dehydrated. He denies any fever, chills. Denies any chest pain or shortness of breath. Patient was diagnosis with prostate cancer in August of 2018. He has seen urology, Oncology and Radiation Oncology. The patient was further evaluated and found to have stage IV gastric cancer in February. He has been to [facility]. His cancer is extensive. He was offered chemotherapy but due to risks, he opted not to pursue chemo. In the ER patient was evaluated. Patient appeared dehydrated. Vital signs stable. Hemoglobin 7.2. Prior hemoglobin 7.6. White count 4.0. Sodium 142, potassium 4.4, creatinine within normal range. GFR greater than 90. Glucose 147. Guaiac stool negative. Patient was admitted for further evaluation and observation. When I saw the patient ER, he had received medication for nausea, and fluid hydration. Patient denies any rectal bleeding or melena. Patient appeared dehydrated. Family at bedside. Patient does not appear septic. Patient is considering hospice. Somebody had recommended [facility]. Hospital Course: Patient presented with weakness, nausea and vomiting with dehydration likely related to his stage IV gastric cancer. Patient was found to be anemic. Patient with underlying anemia of chronic disease likely related to his stage IV gastric cancer. Patient has seen Oncology locally and in [facility]. Patient desires no further chemotherapy. Patient was admitted for IV fluid hydration and blood transfusion. Patient received 2 units of packed red blood cells. Patient's condition has improved. Extensive discussion concerning advanced directives and hospice was addressed in detail. Patient desires to be do not resuscitate. Patient understands that he is a terminal condition. He is at peace with his condition and prognosis. Patient desires hospice at home at this time. Hospice at home will be arranged. At discharge patient will continue with multi vitamin with iron daily, vitamin-B 12 daily, and folic acid daily. For pain, patient will continue with hydrocodone 10/325 mg 1 p.o. every 4 hr as needed for pain. Further adjustment in medication for pain control can be addressed by hospice. Patient may require increased dose or other medication. Patient with underlying hypertension. Patient will continue with metoprolol 12.5 mg twice daily. He may hold medication if blood pressure less than 110. Recommend to maintain blood pressure less than 150/80. Further adjustment can be done by hospice. Patient with diabetes mellitus type 2 [id number]. At discharge patient will continue with his current medications of metformin a 1000 mg 1 pill twice daily and glipizide 10 mg 1 pill twice daily. Recommend to monitor blood sugar for hypoglycemia. Glipizide may need to be held if blood sugar less than 100. Further adjustment in medication can be done by hospice. Patient with history of prostate cancer, stage IV gastric cancer with metastasis to the bone, and adrenal insufficiency. Patient previously on Flomax and Cortef. At discharge she will continue with Flomax 0.4 mg daily and Cortef 15 mg 1 pill twice daily. Further adjustment can be done by hospice. Vital Signs/Physical Exam: Temp Pulse Resp BP Pulse Ox 97.5 F 72 17 152/67 H 100 05/02/19 04:00 05/02/19 07:21 05/02/19 04:00 05/02/19 07:21 05/02/19 04:00 General: Alert, In no apparent distress, Oriented x3, Cooperative HEENT: Atraumatic Neck: Supple Respiratory: Clear to auscultation bilaterally, Normal air movement Cardiovascular: Normal pulses, Regular rate/rhythm Gastrointestinal: Normal bowel sounds, Soft and benign, Non-distended Musculoskeletal: Other (Muscle wasting to the extremities.) Laboratory Data at Discharge: WBC 4.0 K/uL (4.3-10.9) L 05/01/19 16:10 Hgb 7.2 g/dL (13.6-17.9) L* 05/01/19 16:10 Hct 22.5 % (39.6-49.0) L 05/01/19 16:10 Plt Count 134 K/uL (152-406) L 05/01/19 16:10 PT 16.4 SECONDS (9.5-12.5) H 05/01/19 16:10 INR 1.41 05/01/19 16:10 Sodium 142 mmol/L (136-145) 05/01/19 16:10 Potassium 4.4 mmol/L (3.5-5.1) 05/01/19 16:10 BUN 18 mg/dL (7-18) 05/01/19 16:10 Creatinine 0.80 mg/dL (0.55-1.3) 05/01/19 16:10 Glucose 147 mg/dL (74-106) H 05/01/19 16:10 Magnesium 2.1 mg/dL (1.8-2.4) 05/01/19 16:10 Total Bilirubin 0.5 mg/dL (0.2-1.0) 05/01/19 16:10 AST 6 U/L (15-37) L 05/01/19 16:10 ALT < 6 U/L (12-78) L 05/01/19 16:10 Alkaline Phosphatase 1100 U/L (45-117) H 05/01/19 16:10 Home Medications: Hydrocodone 10/APAP 325 [[place] 10/325*] 1 tab PO Q4HP PRN 05/01/19 Hydrocortisone [Cortef*] 15 mg PO BID 05/01/19 Metformin ER [Glucophage ER*] 1,000 mg PO BID 05/01/19 Potassium Oral Tab [Klor-Con 10 mEq Tab*] 2 tab PO BID 05/01/19 Tamsulosin [Flomax*] 1 tab PO BEDTIME 05/01/19 Cyanocobalamin (Vitamin B-12) [Vitamin B-12] 1,000 mcg PO DAILY #90 tablet 05/02 Folic Acid 1 mg PO DAILY #90 tablet 05/02/19 Glipizide [Glucotrol Xl] 1 tab PO BID #60 tab.er.24 05/02/19 Metoprolol Tartrate [Lopressor*] 12.5 mg PO BID 6AM 6PM #60 tab 05/02/19 Multivitamin with Iron [Multivitamins with Iron] 1 each PO DAILY #90 tablet Pantoprazole [Protonix Tab*] 40 mg PO DAILYAC #30 tab 05/02/19 New Medications: Cyanocobalamin (Vitamin B-12) [Vitamin B-12] 1,000 mcg PO DAILY #90 tablet Folic Acid 1 mg PO DAILY #90 tablet Glipizide [Glucotrol Xl] 1 tab PO BID #60 tab.er.24 Metoprolol Tartrate [Lopressor*] 12.5 mg PO BID 6AM 6PM #60 tab Multivitamin with Iron [Multivitamins with Iron] 1 each PO DAILY #90 tablet Pantoprazole [Protonix Tab*] 40 mg PO DAILYAC #30 tab Patient Discharge Instructions: 1. Patient will go home with hospice in place. 2. Patient presented with weakness, nausea and vomiting with dehydration likely related to his stage IV gastric cancer. Patient was found to be anemic. Patient with underlying anemia of chronic disease likely related to his stage IV gastric cancer. Patient has seen Oncology locally and in [facility]. Patient desires no further chemotherapy. Patient was admitted for IV fluid hydration and blood transfusion. Patient received 2 units of packed red blood cells. Patient's condition has improved. Extensive discussion concerning advanced directives and hospice was addressed in detail. Patient desires to be do not resuscitate. Patient understands that he is a terminal condition. He is at peace with his condition and prognosis. Patient desires hospice at home at this time. Hospice at home will be arranged. At discharge patient will continue with multi vitamin with iron daily, vitamin-B 12 daily, and folic acid daily. For pain, patient will continue with hydrocodone 10/325 mg 1 p.o. every 4 hr as needed for pain. Further adjustment in medication for pain control can be addressed by hospice. Patient may require increased dose or other medication. 3. Patient with underlying hypertension. Patient will continue with metoprolol 12.5 mg twice daily. He may hold medication if blood pressure less than 110. Recommend to maintain blood pressure less than 150/80. Further adjustment can be done by hospice. 4. Patient with diabetes mellitus type 2 [id number]. At discharge patient will continue with his current medications of metformin a 1000 mg 1 pill twice daily and glipizide 10 mg 1 pill twice daily. Recommend to monitor blood sugar for hypoglycemia. Glipizide may need to be held if blood sugar less than 100. Further adjustment in medication can be done by hospice. 5. Patient with history of prostate cancer, stage IV gastric cancer with metastasis to the bone, and adrenal insufficiency. Patient previously on Flomax and Cortef. At discharge she will continue with Flomax 0.4 mg daily and Cortef 15 mg 1 pill twice daily. Further adjustment can be done by hospice. Diet: AHA Activity: Ad ara Time spent managing pt's care (in minutes): 55
[2019-05-02 08:43] LABS: Absolute Lymphocytes (CBC) 0.9 K/uL (0.7-4.9); Basophils % 0.3 % (0-1.3); Hematocrit 31.3 % (39.6-49.0); Lymphocytes % 17.3 % (15.3-44.8); MPV 8.1 fL (7.6-11.3); RBC Red Blood Cell Count 3.54 M/uL (4.33-5.43)
[2019-05-02 08:51] LABS: Potassium 3.9 mmol/L (3.5-5.1)
[2019-05-02] MEDS ORDERED: HYDROCORTISONE 10 MG TAB PO SCH (09:00)
[2019-05-02] MEDS ORDERED: METFORMIN ER 500 MG TAB PO SCH (09:00)
[2019-05-02 09:27] VITALS: BP 156/56; TEMP 97
[2019-05-02] MEDS ORDERED: LORAZEPAM 0.5 MG TABLET PO ONE (09:39)
[2019-05-02] MEDS ORDERED: TAMSULOSIN 0.4 MG SR CAP PO SCH (21:00)
== END 2019-05-02 11:50 | disposition hospice, home (50) ==
LOC: ER 14:35 → ERHOLD 18:38 → 4TH 20:40
PROVIDERS: ADMIT Family Medicine; ATTEND Family Medicine
DX: E86.0 Dehydration (principal); R53.1 Weakness; R11.2 Nausea with vomiting, unspecified; C61 Malignant neoplasm of prostate; C79.51 Secondary malignant neoplasm of bone; C16.9 Malignant neoplasm of stomach, unspecified; E27.40 Unspecified adrenocortical insufficiency; I10 Essential (primary) hypertension; E11.9 Type 2 diabetes mellitus without complications; D64.9 Anemia, unspecified
CPT/HCPCS: 96361; 36430; 93005; 87088; 85025 ×2; 80048 ×2; 36415; 86900; 83735 ×2; 86850; 85610; 86901; 82947 ×2; 80076; 84484; 82728; 82607; 83540; 84466; 96360; 99285; J1940 ×2; G0378 ×2; P9016 ×2; J7030 ×4; 81003; 81015; 87086